=== PATIENT | female | born 1995 | race African-American/Black ===

== ENCOUNTER 2024-05-09 16:36 | Emergency (ER) | payer MEDICAID ==
[~2024-05-09] VITALS: Ht 165.1 cm; Wt 95.0 kg
[2024-05-09 17:01] VITALS: O2SAT 98
[2024-05-09] MEDS: ONDANSETRON HCL 4MG TABLET PO ONE (21:22)
[2024-05-09] MEDS ORDERED: ONDA4TAB50 MT (21:51)
[2024-05-09] MEDS ORDERED: BENZ100C86 MT (21:51)
[2024-05-09 22:12] VITALS: BP 126/83; PULSE 99; RESP 18; TEMP 37.5; O2SAT 98
== END 2024-05-09 22:18 | disposition home or self-care (01) ==
LOC: ER 16:36
DX: B34.9 Viral infection, unspecified (principal); R11.10 Vomiting, unspecified; Z98.890 Other specified postprocedural states
CPT/HCPCS: 99283; 71045; Q0162